=== PATIENT | female | born 1945 | race African-American/Black ===

== ENCOUNTER 2018-08-01 20:21 | Emergency (ER) | payer MEDICARE ==
[~2018-08-01] VITALS: Ht 170.2 cm; Wt 98.0 kg
[2018-08-01] MEDS ORDERED: IBUPROFEN 600MG TABLET PO ONE (21:30)
[2018-08-01 23:07] VITALS: BP 122/74
== END 2018-08-02 00:27 | disposition home or self-care (01) ==
LOC: ER 20:21
DX: S93.491A Sprain of other ligament of right ankle, initial encounter (principal); E11.9 Type 2 diabetes mellitus without complications; Z90.49 Acquired absence of other specified parts of digestive tract; W01.0XXA Fall on same level from slipping, tripping and stumbling without subsequent striking against object, initial encounter; Y93.89 Activity, other specified; Y92.89 Other specified places as the place of occurrence of the external cause; Y99.8 Other external cause status
CPT/HCPCS: 29515; 73610; 99284

== ENCOUNTER 2020-01-02 12:42 | Emergency (ER) | payer MEDICARE, BC ==
[~2020-01-02] VITALS: Ht 170.2 cm; Wt 107.0 kg
[2020-01-02] MEDS ORDERED: KETOROLAC 30MG/ML VIAL IM ONE (14:15)
[2020-01-02] MEDS ORDERED: HYDROCODONE/ACETAMINOPHEN 5/325MG TABLET PO ONE (16:15)
[2020-01-02 19:54] VITALS: BP 154/84
== END 2020-01-02 19:55 | disposition home or self-care (01) ==
LOC: ER 14:29
DX: M25.552 Pain in left hip (principal); W18.39XA Other fall on same level, initial encounter; E11.9 Type 2 diabetes mellitus without complications; I10 Essential (primary) hypertension; E78.00 Pure hypercholesterolemia, unspecified; Z90.49 Acquired absence of other specified parts of digestive tract; Z90.89 Acquired absence of other organs; Z98.890 Other specified postprocedural states; Y93.89 Activity, other specified; Y92.89 Other specified places as the place of occurrence of the external cause; Y99.8 Other external cause status
CPT/HCPCS: 72100; 72192; 73502; 96372; 99285; J1885